=== PATIENT | female | born 2000 | race Caucasian/White ===

== ENCOUNTER 2021-01-09 17:14 | Emergency (ER) | payer BC ==
[2021-01-09 17:58] LABS: HEMOGLOBIN 13.9 gm/dl (12.3-15.3); RED BLOOD COUNT 4.46 M/UL (4.00-5.10)
[2021-01-09 18:25] LABS: BUN/CREATININE RATIO 11 (0-10)
[2021-01-09] MEDS ORDERED: IBUPROFEN600 MG PO (22:08)
== END 2021-01-09 23:45 | disposition home or self-care (01) ==
LOC: ER1 17:14
PROVIDERS: Nurse Practitioner
DX: R10.31 Right lower quadrant pain (principal); R19.7 Diarrhea, unspecified; R10.813 Right lower quadrant abdominal tenderness; Z88.0 Allergy status to penicillin; Z88.1 Allergy status to other antibiotic agents
CPT/HCPCS: 80053; 81001; 83605; 84703; 85025; 87045; 87046; 96374; 96375; 99284; J1885; J2405; Q9967